=== PATIENT | female | born 1955 | race Caucasian/White ===

== ENCOUNTER 2018-05-13 17:37 | Observation (INO) | payer BC ==
[2018-05-13] MEDS ORDERED: SODIUM CHLORIDE 0.9% 1,000 ML IV STA (18:29)
--- NOTE | 2018-05-13 18:32 | ED ---
General Adult HPI - General Chief complaint: Arrhythmia/Palpitations Stated complaint: Palpitations Time Seen by Provider: 05/13/18 18:10 Source: patient, RN notes reviewed Mode of arrival: wheelchair Limitations: no limitations - History of Present Illness Initial comments: patient is a pleasant 63-year-old female presenting to the emergency Department with complaints of palpitations. Onset of symptoms was yesterday, worse today. Patient feels her heart racing. Patient has noticed on her fitbit that heart rate has been between 110 and 1:30.normally she believes her heart rate is in the 70s. No history of similar symptoms previously. Patient does have some associated dyspnea and fatigue, especially with exertion. Patient has minimal cough, nonproductive. No chest pain. No leg pain or leg swelling. - Related Data Home Medications Medication Instructions Recorded Confirmed Acetaminophen Tab [Tylenol Tab] 650 mg PO Q4H PRN 05/13/18 05/13/18 Nitrofurantoin Monohyd/M-Cryst 100 mg PO Q12HR 05/13/18 05/13/18 [Macrobid] Allergies Allergy/AdvReac Type Severity Reaction Status Date / Time No Known Allergies Allergy Verified 05/13/18 18:29 Review of Systems ROS Statement: Those systems with pertinent positive or pertinent negative responses have been documented in the HPI. ROS Other: All systems not noted in ROS Statement are negative. Constitutional: Denies: fever Eyes: Denies: eye pain ENT: Denies: ear pain Respiratory: Reports: cough, dyspnea Cardiovascular: Reports: palpitations. Denies: chest pain Endocrine: Reports: fatigue Gastrointestinal: Denies: abdominal pain Genitourinary: Denies: dysuria Musculoskeletal: Denies: back pain Skin: Denies: rash Neurological: Denies: weakness Past Medical History Past Medical History: Cancer Additional Past Medical History / Comment(s): double mastectomy History of Any Multi-Drug Resistant Organisms: None Reported Past Surgical History: Bariatric Surgery, Breast Surgery Additional Past Surgical History / Comment(s): lap band 2004 double mastectomy Past Anesthesia/Blood Transfusion Reactions: No Reported Reaction Past Psychological History: No Psychological Hx Reported Smoking Status: Former smoker Past Alcohol Use History: None Reported Past Drug Use History: None Reported General Exam Limitations: no limitations General appearance: alert, in no apparent distress Head exam: Present: atraumatic Eye exam: Present: normal appearance, PERRL ENT exam: Present: normal oropharynx Neck exam: Present: normal inspection Respiratory exam: Present: normal lung sounds bilaterally. Absent: chest wall tenderness Cardiovascular Exam: Present: tachycardia Expanded Peripheral pulses: 2+: Radial (R), Radial (L), Dorsalis Pedis (R), Dorsalis Pedis (L) GI/Abdominal exam: Present: soft. Absent: tenderness Extremities exam: Present: normal inspection. Absent: pedal edema, calf tenderness Neurological exam: Present: alert Psychiatric exam: Present: normal affect, normal mood Skin exam: Present: normal color Course Vital Signs 05/13/18 05/13/18 17:59 20:23 Temperature 98.9 F Pulse Rate 135 H 123 H Respiratory 20 18 Rate Blood Pressure 106/63 143/81 O2 Sat by Pulse 92 L 93 L Oximetry EKG Findings - EKG Comments: EKG Findings:: Sinus tachycardia 128. CT 138. QRS 74. QT 306. QTc 446. Normal axis. Normal QRS. nonspecific ST-T. Medical Decision Making - Medical Decision Making Patient reevaluated and resting comfortably in bed. Heart rate remains 120. Etiology of tachycardia is unclear at this point. Case was discussed in detail with Dr. Coffey, who will admit covering for [facility]. He does agree with consults with cardiology and pulmonary. He does request Dr. Bermudez for pulmonary. He also requests urinalysis. - Lab Data Result diagrams: 05/13/18 18:23 05/13/18 18:23 Lab Results 05/13/18 05/13/18 05/13/18 Range/Units 18:23 18:23 18:23 WBC 16.7 H (3.8-10.6) k/uL RBC 4.75 (3.80-5.40) m/uL Hgb 14.3 (11.4-16.0) gm/dL Hct 41.9 (34.0-46.0) % MCV 88.3 (80.0-100.0) fL MCH 30.2 (25.0-35.0) pg MCHC 34.2 (31.0-37.0) g/dL RDW 12.5 (11.5-15.5) % Plt Count 338 (150-450) k/uL Neutrophils % 88 % Lymphocytes % 4 % Monocytes % 4 % Eosinophils % 3 % Basophils % 0 % Neutrophils # 14.7 H (1.3-7.7) k/uL Lymphocytes # 0.7 L (1.0-4.8) k/uL Monocytes # 0.6 (0-1.0) k/uL Eosinophils # 0.5 (0-0.7) k/uL Basophils # 0.0 (0-0.2) k/uL PT (9.0-12.0) sec INR (<1.2) APTT (22.0-30.0) sec D-Dimer (<0.60) mg/L FEU Sodium 138 (137-145) mmol/L Potassium 4.1 (3.5-5.1) mmol/L Chloride 104 (98-107) mmol/L Carbon Dioxide 22 (22-30) mmol/L Anion Gap 12 mmol/L BUN 16 (7-17) mg/dL Creatinine 0.83 (0.52-1.04) mg/dL Est GFR (CKD-EPI)AfAm 89 (>60 ml/min/1.73 sqM) Est GFR (CKD-EPI)NonAf 77 (>60 ml/min/1.73 sqM) Glucose 112 H (74-99) mg/dL Calcium 10.0 (8.4-10.2) mg/dL Magnesium 1.8 (1.6-2.3) mg/dL Total Bilirubin 1.1 (0.2-1.3) mg/dL AST 18 (14-36) U/L ALT 23 (9-52) U/L Alkaline Phosphatase 142 H (38-126) U/L Creatine Kinase 26 L (30-135) U/L CK-MB (CK-2) 0.3 (0.0-2.4) ng/mL Troponin I <0.012 (0.000-0.034) ng/mL Total Protein 7.5 (6.3-8.2) g/dL Albumin 4.3 (3.5-5.0) g/dL TSH 2.250 (0.465-4.680) mIU/L Free T4 1.46 (0.78-2.19) ng/dL Free T3 pg/mL 2.4 L (2.8-5.3) pg/ml 05/13/18 Range/Units 18:23 WBC (3.8-10.6) k/uL RBC (3.80-5.40) m/uL Hgb (11.4-16.0) gm/dL Hct (34.0-46.0) % MCV (80.0-100.0) fL MCH (25.0-35.0) pg MCHC (31.0-37.0) g/dL RDW (11.5-15.5) % Plt Count (150-450) k/uL Neutrophils % % Lymphocytes % % Monocytes % % Eosinophils % % Basophils % % Neutrophils # (1.3-7.7) k/uL Lymphocytes # (1.0-4.8) k/uL Monocytes # (0-1.0) k/uL Eosinophils # (0-0.7) k/uL Basophils # (0-0.2) k/uL PT 10.9 (9.0-12.0) sec INR 1.0 (<1.2) APTT 25.0 (22.0-30.0) sec D-Dimer 0.92 H (<0.60) mg/L FEU Sodium (137-145) mmol/L Potassium (3.5-5.1) mmol/L Chloride (98-107) mmol/L Carbon Dioxide (22-30) mmol/L Anion Gap mmol/L BUN (7-17) mg/dL Creatinine (0.52-1.04) mg/dL Est GFR (CKD-EPI)AfAm (>60 ml/min/1.73 sqM) Est GFR (CKD-EPI)NonAf (>60 ml/min/1.73 sqM) Glucose (74-99) mg/dL Calcium (8.4-10.2) mg/dL Magnesium (1.6-2.3) mg/dL Total Bilirubin (0.2-1.3) mg/dL AST (14-36) U/L ALT (9-52) U/L Alkaline Phosphatase (38-126) U/L Creatine Kinase (30-135) U/L CK-MB (CK-2) (0.0-2.4) ng/mL Troponin I (0.000-0.034) ng/mL Total Protein (6.3-8.2) g/dL Albumin (3.5-5.0) g/dL TSH (0.465-4.680) mIU/L Free T4 (0.78-2.19) ng/dL Free T3 pg/mL (2.8-5.3) pg/ml - Radiology Data Radiology results: report reviewed (Computed tomography scan of the chest negative for pulmonary embolism. There is small pericardial effusion. Minimal pulmonary scarring), image reviewed (Chest x-ray shows no acute disease.) Disposition Clinical Impression: Tachycardia, Dyspnea Disposition: ADMITTED IP TO THIS HOSP Is patient prescribed a controlled substance at d/c from ED?: No Referrals: Sushma Moses DO [Primary Care Provider] - 1-2 days Decision Time: 20:41
[2018-05-13 18:41] LABS: Basophils % (A) 0 %; Eosinophils # (A) 0.5 k/uL (0-0.7); Eosinophils % (A) 3 %; HCT 41.9 % (34.0-46.0); HGB 14.3 gm/dL (11.4-16.0); Lymphocytes # (A) 0.7 k/uL (1.0-4.8); Lymphocytes % (A) 4 %; MCH 30.2 pg (25.0-35.0); MCHC 34.2 g/dL (31.0-37.0); MCV 88.3 fL (80.0-100.0); Mean Platelet Volume 6.5; Monocytes # (A) 0.6 k/uL (0-1.0); Monocytes % (A) 4 %; Neutrophils # (A) 14.7 k/uL (1.3-7.7); Neutrophils % (A) 88 %; Platelet Count 338 k/uL (150-450); RBC 4.75 m/uL (3.80-5.40); RDW 12.5 % (11.5-15.5); WBC 16.7 k/uL (3.8-10.6)
[2018-05-13 18:59] LABS: Prothrombin Time 10.9 sec (9.0-12.0)
[2018-05-13 19:10] LABS: Albumin 4.3 g/dL (3.5-5.0); Magnesium 1.8 mg/dL (1.6-2.3); Potassium 4.1 mmol/L (3.5-5.1); Total Bilirubin 1.1 mg/dL (0.2-1.3); Total Protein 7.5 g/dL (6.3-8.2)
--- NOTE | 2018-05-13 19:11 | XR ---
EXAMINATION TYPE: XR chest 2V DATE OF EXAM: 05/13/2018 COMPARISON: NONE HISTORY: Short of breath TECHNIQUE: Frontal and lateral views of the chest are obtained. FINDINGS: Heart and mediastinum are within normal limits. Costophrenic angles are clear. Lungs are c lear of infiltrate. There are surgical clips at the right axilla. Bony thorax is intact. IMPRESSION: No active cardiopulmonary disease. Normal heart.
[2018-05-13 19:12] LABS: Creatine Kinase MB 0.3 ng/mL (0.0-2.4); D-Dimer 0.92 mg/L FEU (<0.60); Troponin I <0.012 ng/mL (0.000-0.034)
[2018-05-13 19:17] LABS: T4, Free (Free Thyroxine) 1.46 ng/dL (0.78-2.19)
--- NOTE | 2018-05-13 20:25 | CT ---
EXAMINATION TYPE: CT angio chest DATE OF EXAM: 05/13/2018 8:10 PM COMPARISON: None HISTORY: ASTRID CT DLP: 274.4 mGycm Automated exposure control for dose reduction was used. CONTRAST: CTA scan of the thorax is performed with IV Contrast, patient injected with 100 mL of Isovue 370, pul monary embolism protocol. There are 3-D post processed images.. FINDINGS: There are a few less than 5 mm subpleural nodular densities in the lower lobes. There is no evidence of a pulmonary mass. There is no pleural effusion. There is subsegmental atelectasis and scarring at the posterior lung bases. Heart size is normal. There is a very small pericardial effusion. There is normal contrast opacification of the pulmonary arteries. There are few bilateral bronchial l ymph nodes that measure up to 1 cm. There are mediastinal lymph nodes that measure up to 1 cm. Thorac ic aorta shows no aneurysm or dissection. Ascending aorta measures 3.2 cm. There is mild spondylotic changes in the thoracic spine. I see no bony destructive process. Thoracic spine is intact. IMPRESSION: NO EVIDENCE OF PULMONARY EMBOLISM. SMALL PERICARDIAL EFFUSION. MINIMAL PULMONARY SCARRING.
[2018-05-13 20:48] LABS: Appearance,Urine Clear (Clear); Bilirubin,Urine Negative (Negative); Blood,Urine Negative (Negative); Color,Urine Light Red; Glucose,Urine (UA) Negative (Negative); Ketones,Urine 3+ (Negative); Leukocyte Esterase,Urine Negative (Negative); Mucus,Urine Few /hpf; Nitrite,Urine Negative (Negative); Protein,Urine 1+ (Negative); RBC,Urine 6 /hpf (0-5); Squamous Epithelial Cell,Urine <1 /hpf (0-4); Urobilinogen,Urine <2.0 mg/dL (<2.0); WBC,Urine 1 /hpf (0-5)
[2018-05-13 20:55] LABS: Cocaine Screen,Urine Not Detected (NotDetected); Phencyclidine Screen,Urine Not Detected (NotDetected); Urn Cannabinoid Scrn Not Detected (NotDetected)
[2018-05-13 20:56] LABS: Amphetamine Screen,Urine Not Detected (NotDetected); Barbiturate Screen,Urine Not Detected (NotDetected); Benzodiazepines Screen,Urine Not Detected (NotDetected); Methadone Screen, Urine Not Detected (NotDetected); Opiate Screen,Urine Not Detected (NotDetected); Oxycodone Screen, Urine Not Detected (NotDetected); Tricyclic Antidepressant,Urine Not Detected (NotDetected)
[2018-05-13 21:17] LABS: Specific Gravity,Urine >1.050 (1.001-1.035)
[2018-05-13] MEDS ORDERED: ACETAMINOPHEN TAB 325 MG TAB PO STA (22:49)
[2018-05-13 23:03] LABS: Creatine Kinase MB 0.4 ng/mL (0.0-2.4); Troponin I <0.012 ng/mL (0.000-0.034)
[2018-05-13 23:05] LABS: Cholesterol 204 mg/dL (<200); HDL Cholesterol 47 mg/dL (40-60); LDL Cholesterol,Calculated 134 mg/dL (0-99); Triglycerides 116 mg/dL (<150)
[2018-05-14 01:14] VITALS: BMI 25.6
[2018-05-14 03:13] LABS: Creatine Kinase MB 0.5 ng/mL (0.0-2.4); Troponin I <0.012 ng/mL (0.000-0.034)
[2018-05-14] MEDS ORDERED: SODIUM CHLORIDE 0.9% 500 ML 500 ML IV ONE (08:43)
[2018-05-14 09:17] LABS: Basophils % (A) 0 %; Eosinophils # (A) 0.4 k/uL (0-0.7); Eosinophils % (A) 3 %; HCT 37.1 % (34.0-46.0); HGB 12.5 gm/dL (11.4-16.0); Lymphocytes % (A) 8 %; MCH 30.1 pg (25.0-35.0); MCHC 33.8 g/dL (31.0-37.0); MCV 89.1 fL (80.0-100.0); Mean Platelet Volume 6.6; Monocytes # (A) 0.6 k/uL (0-1.0); Monocytes % (A) 5 %; Neutrophils # (A) 10.6 k/uL (1.3-7.7); Neutrophils % (A) 83 %; Platelet Count 310 k/uL (150-450); RBC 4.17 m/uL (3.80-5.40); RDW 12.6 % (11.5-15.5); WBC 12.8 k/uL (3.8-10.6)
[2018-05-14 09:36] LABS: ALT 23 U/L (9-52); AST 15 U/L (14-36); Albumin 3.2 g/dL (3.5-5.0); Alkaline Phosphatase 99 U/L (38-126); Anion Gap 7 mmol/L; Blood Urea Nitrogen 16 mg/dL (7-17); Calcium 8.8 mg/dL (8.4-10.2); Carbon Dioxide 23 mmol/L (22-30); Chloride 107 mmol/L (98-107); Glucose 106 mg/dL (74-99); Potassium 4.1 mmol/L (3.5-5.1); Sodium 137 mmol/L (137-145); Total Bilirubin 0.5 mg/dL (0.2-1.3)
[2018-05-14] MEDS ORDERED: ACETAMINOPHEN TAB 325 MG TAB PO PRN (10:19)
--- NOTE | 2018-05-14 11:37 | P.CRDCN ---
History of Present Illness Consult date: 05/14/18 Requesting physician: Javier Coffey Chief complaint: Palpitations and shortness of breath History of present illness: This is a pleasant 63-year-old female with no prior documented history of hypertension, nondiabetic, no hyperlipidemia, nonsmoker, rare EtOH, history of breast cancer for which she underwent bilateral mastectomy with chemotherapy and radiation 6 years ago, presents to the hospital with symptoms of palpitations and shortness of breath which started up on Friday. The patient does wear fit bed, she states that she noted her heart rate to be up in the 130s and she was quite short of breath, had some mild dizziness and lightheadedness. On arrival to the emergency room the patient states her heart rate was still up in the 1:30 range. The EKG performed on arrival here showed a sinus tachycardia with nonspecific ST-T wave changes. Chest x-ray did not reveal any active cardiopulmonary disease. TAX REPRESENTATIVE of the chest did not reveal any evidence of pulmonary embolism. Small pericardial effusion noted, normal pulmonary scarring. Blood pressure on arrival here 106/60 with a heart rate of 135, 92% on room air, temperature 98.9. Blood pressure this morning 92/60, heart rate in the 90s, 97% on 2 L of oxygen. Patient is currently in a normal sinus rhythm. White blood cell count on admission 16.7, 12.8 this morning, hemoglobin 12.5, platelet count 310. Sodium 137, potassium 4.1, BUN 16, creatinine 0.8. Troponins are negative 2. Drug screen negative, influenza A and B-. This morning patient feels well, in normal sinus rhythm with a heart rate in the 80s to 90s. Past Medical History Past Medical History: Cancer Additional Past Medical History / Comment(s): double mastectomy History of Any Multi-Drug Resistant Organisms: None Reported Past Surgical History: Appendectomy, Bariatric Surgery, Breast Surgery, Cholecystectomy Additional Past Surgical History / Comment(s): lap band 2004 double mastectomy Past Anesthesia/Blood Transfusion Reactions: No Reported Reaction Past Psychological History: No Psychological Hx Reported Smoking Status: Former smoker Past Alcohol Use History: None Reported Past Drug Use History: None Reported - Past Family History Mother Family Medical History: Dementia Father Family Medical History: Coronary Artery Disease (CAD), Liver Disease Additional Family Medical History / Comment(s): LIVER DISEASE WAS AFTER HEART SURGERY Medications and Allergies Home Medications Medication Instructions Recorded Confirmed Type Acetaminophen Tab [Tylenol Tab] 650 mg PO Q4H PRN 05/13/18 05/13/18 History Nitrofurantoin Monohyd/M-Cryst 100 mg PO Q12HR 05/13/18 05/13/18 History [Macrobid] Allergies Allergy/AdvReac Type Severity Reaction Status Date / Time No Known Allergies Allergy Verified 05/13/18 18:29 Physical Exam Vitals: Vital Signs Temp Pulse Pulse Resp BP BP BP 05/14/18 08:00 98.1 F 93 18 92/58 92/59 05/14/18 04:00 99.2 F 110 H 18 115/65 05/14/18 01:33 98.6 F 114 H 20 127/70 05/14/18 00:50 98.6 F 114 H 18 127/70 05/14/18 00:00 98.0 F 120 H 20 113/74 05/13/18 22:00 128 H 20 126/75 05/13/18 21:00 126 H 18 127/83 05/13/18 20:23 123 H 18 143/81 05/13/18 17:59 98.9 F 135 H 20 106/63 Pulse Ox 05/14/18 08:00 97 05/14/18 04:00 94 L 05/14/18 01:33 94 L 05/14/18 00:50 94 L 05/14/18 00:00 94 L 05/13/18 22:00 95 05/13/18 21:00 94 L 05/13/18 20:23 93 L 05/13/18 17:59 92 L Intake and Output 05/13/18 05/14/18 05/14/18 22:59 06:59 14:59 Intake Total 360 Balance 360 Intake: Oral 360 Other: Voiding Method Toilet Toilet # Voids 1 Weight 63.503 kg 63.2 kg PHYSICAL EXAMINATION: GENERAL: 63-year-old female in no acute distress at the time of my examination HEENT: Head is atraumatic, normocephalic. Pupils equal, round. Sclera anicteric. Conjunctiva are clear. Mucous membranes of the mouth are moist. Neck is supple. There is no elevated jugular venous pressure. No carotid bruit is heard. HEART EXAMINATION: Heart S1, S2 normal. No murmur or gallop heard. CHEST EXAMINATION: Lungs are clear to auscultation and precussion. No chest wall tenderness is noted on palpation or with deep breathing. ABDOMEN: Soft, nontender. Bowel sounds are heard. No organomegaly noted. EXTREMITIES: 2+ peripheral pulses with no evidence of peripheral edema and no calf tenderness noted. NEUROLOGIC patient is awake, alert and oriented X3. . Results 05/14/18 08:54 05/14/18 08:54 Cardiac Enzymes 05/13/18 05/13/18 05/13/18 Range/Units 18:23 18:23 22:00 AST 18 (14-36) U/L CK-MB (CK-2) 0.3 0.4 (0.0-2.4) ng/mL Troponin I <0.012 <0.012 (0.000-0.034) ng/mL 05/14/18 05/14/18 Range/Units 02:03 08:54 AST 15 (14-36) U/L CK-MB (CK-2) 0.5 (0.0-2.4) ng/mL Troponin I <0.012 (0.000-0.034) ng/mL Coagulation 05/13/18 Range/Units 18:23 PT 10.9 (9.0-12.0) sec APTT 25.0 (22.0-30.0) sec Lipids 05/13/18 Range/Units 18:23 Triglycerides 116 (<150) mg/dL Cholesterol 204 H (<200) mg/dL HDL Cholesterol 47 (40-60) mg/dL CBC 05/13/18 05/14/18 Range/Units 18:23 08:54 WBC 16.7 H 12.8 H (3.8-10.6) k/uL RBC 4.75 4.17 (3.80-5.40) m/uL Hgb 14.3 12.5 (11.4-16.0) gm/dL Hct 41.9 37.1 (34.0-46.0) % Plt Count 338 310 (150-450) k/uL Comprehensive Metabolic Panel 05/13/18 05/14/18 Range/Units 18:23 08:54 Sodium 138 137 (137-145) mmol/L Potassium 4.1 4.1 (3.5-5.1) mmol/L Chloride 104 107 (98-107) mmol/L Carbon Dioxide 22 23 (22-30) mmol/L BUN 16 16 (7-17) mg/dL Creatinine 0.83 0.80 (0.52-1.04) mg/dL Glucose 112 H 106 H (74-99) mg/dL Calcium 10.0 8.8 (8.4-10.2) mg/dL AST 18 15 (14-36) U/L ALT 23 23 (9-52) U/L Alkaline Phosphatase 142 H 99 (38-126) U/L Total Protein 7.5 6.0 L (6.3-8.2) g/dL Albumin 4.3 3.2 L (3.5-5.0) g/dL Current Medications Generic Name Dose Route Start Last Admin Trade Name Freq PRN Reason Stop Dose Admin Acetaminophen 650 mg 05/14/18 10:19 Tylenol Tab PO Q6HR PRN Fever and/ or Pain Ceftriaxone Sodium 1 gm/ 50 mls @ 100 mls/hr 05/14/18 11:00 Sodium Chloride IVPB Q24HR ORALIA Sodium Chloride 10 ml 05/13/18 21:00 Saline Flush IV BID ORALIA Intake and Output 05/13/18 05/14/18 05/14/18 22:59 06:59 14:59 Intake Total 360 Balance 360 Intake: Oral 360 Other: Voiding Method Toilet Toilet # Voids 1 Weight 63.503 kg 63.2 kg 05/14/18 08:54 05/14/18 08:54 EKG Interpretations (text) EKG showed a sinus tachycardia with heart rate in the 130s Assessment and Plan Plan: Assessment and plan #1 symptoms of shortness of breath with associated palpitations and heart racing , EKG on admission showed sinus tachycardia, CTA of the chest negative for pulmonary embolism #2 urinary tract infection, on Macrobid since Friday of last week #3 history of breast cancer treated with chemo and radiation as well as bilateral mastectomy 6 years ago Plan We will review the patient's echocardiogram with Doppler study. Tsh level normal. Further recommendations to follow. DNP note has been reviewed, I agree with a documented findings and plan of care. Patient was seen and examined.
--- NOTE | 2018-05-14 15:10 | P.HPIM ---
History of Present Illness H&P Date: 05/14/18 This is a 63-year-old female patient of Dr. Shin. Patient presented to the hospital with complaints of heart palpitations and shortness breath she reports that symptoms started 2 days ago but progressively increased. patient has a known past medical history of breast cancer with double mastectomy, LAP-BAND surgery in 2003, cholecystectomy and appendectomy. Chest x-ray completed in ER showing no active cardiopulmonary disease normal heart. Chest CTA was completed showing no evidence for pulmonary and was in. Small pericardial effusion minimal pulmonary scarring. Admission patient's white blood cell elevated at 16.7. Patient was tested for flu influenza negative. UA negative. Drug screen negative. Lactic acid completed 0.9. EKG completed showing sinus tachycardia and nonspecific ST abnormality. Blood and urine cultures have been ordered. Cardiology, pulmonary and infectious disease consult placed. Patient reports that she was started on Macrobid outpatient by her PCP due to positive urine culture. Patient also states symptoms started around the time that she started Macrobid. At this time Macrobid will be discontinued and patient will be started on Rocephin. Infectious disease will be consulted. At this time patient remains elevated at 110. At this time patient denies chest pain or shortness of breath. Patient denies nausea vomiting or diarrhea. Patient denies any urinary burning Review of Systems please refer to HPI otherwise unremarkable Past Medical History Past Medical History: Cancer Additional Past Medical History / Comment(s): double mastectomy History of Any Multi-Drug Resistant Organisms: None Reported Past Surgical History: Appendectomy, Bariatric Surgery, Breast Surgery, Cholecystectomy Additional Past Surgical History / Comment(s): lap band 2003 double mastectomy Past Anesthesia/Blood Transfusion Reactions: No Reported Reaction Past Psychological History: No Psychological Hx Reported Smoking Status: Former smoker Past Alcohol Use History: None Reported Past Drug Use History: None Reported - Past Family History Mother Family Medical History: Dementia Father Family Medical History: Coronary Artery Disease (CAD), Liver Disease Additional Family Medical History / Comment(s): LIVER DISEASE WAS AFTER HEART SURGERY Medications and Allergies Home Medications Medication Instructions Recorded Confirmed Type Acetaminophen Tab [Tylenol Tab] 650 mg PO Q4H PRN 05/13/18 05/13/18 History Nitrofurantoin Monohyd/M-Cryst 100 mg PO Q12HR 05/13/18 05/13/18 History [Macrobid] Allergies Allergy/AdvReac Type Severity Reaction Status Date / Time No Known Allergies Allergy Verified 05/13/18 18:29 Physical Exam Vitals: Vital Signs Temp Pulse Pulse Resp BP BP BP 05/14/18 12:00 97.9 F 81 16 109/60 05/14/18 08:00 98.1 F 93 18 92/58 92/59 05/14/18 04:00 99.2 F 110 H 18 115/65 05/14/18 01:33 98.6 F 114 H 20 127/70 05/14/18 00:50 98.6 F 114 H 18 127/70 05/14/18 00:00 98.0 F 120 H 20 113/74 05/13/18 22:00 128 H 20 126/75 05/13/18 21:00 126 H 18 127/83 05/13/18 20:23 123 H 18 143/81 05/13/18 17:59 98.9 F 135 H 20 106/63 Pulse Ox 05/14/18 12:00 97 05/14/18 08:00 97 05/14/18 04:00 94 L 05/14/18 01:33 94 L 05/14/18 00:50 94 L 05/14/18 00:00 94 L 05/13/18 22:00 95 05/13/18 21:00 94 L 05/13/18 20:23 93 L 05/13/18 17:59 92 L Intake and Output 05/14/18 05/14/18 05/14/18 06:59 14:59 22:59 Intake Total 600 Output Total 600 Balance 0 Intake: Oral 600 Output: Urine 600 Other: Voiding Method Toilet Toilet # Voids 1 Weight 63.2 kg Head normocephalic Neck supple Lungs clear to auscultation bilaterally no wheezing or crackles Heart regular rate and rhythm S1-S2, no rub or gallop Abdomen is soft nontender nondistended positive bowel sounds no hepatosplenomegaly Extremities no edema Neuro alert and orientated to 3 Results CBC & Chem 7: 05/14/18 08:54 05/14/18 08:54 Labs: Abnormal Lab Results - Last 24 Hours (Table) 05/13/18 05/13/18 05/13/18 Range/Units 18:23 18:23 18:23 WBC 16.7 H (3.8-10.6) k/uL Neutrophils # 14.7 H (1.3-7.7) k/uL Lymphocytes # 0.7 L (1.0-4.8) k/uL D-Dimer 0.92 H (<0.60) mg/L FEU Glucose 112 H (74-99) mg/dL Alkaline Phosphatase 142 H (38-126) U/L Creatine Kinase 26 L (30-135) U/L Total Protein (6.3-8.2) g/dL Albumin (3.5-5.0) g/dL Cholesterol (<200) mg/dL LDL Cholesterol, Calc (0-99) mg/dL Free T3 pg/mL 2.4 L (2.8-5.3) pg/ml Ur Specific [place] (1.001-1.035) Urine Protein (Negative) Urine Ketones (Negative) Urine RBC (0-5) /hpf Urine Mucus (None) /hpf 05/13/18 05/13/18 05/13/18 Range/Units 18:23 20:01 22:00 WBC (3.8-10.6) k/uL Neutrophils # (1.3-7.7) k/uL Lymphocytes # (1.0-4.8) k/uL D-Dimer (<0.60) mg/L FEU Glucose (74-99) mg/dL Alkaline Phosphatase (38-126) U/L Creatine Kinase 24 L (30-135) U/L Total Protein (6.3-8.2) g/dL Albumin (3.5-5.0) g/dL Cholesterol 204 H (<200) mg/dL LDL Cholesterol, Calc 134 H (0-99) mg/dL Free T3 pg/mL (2.8-5.3) pg/ml Ur Specific [place] >1.050 H (1.001-1.035) Urine Protein 1+ H (Negative) Urine Ketones 3+ H (Negative) Urine RBC 6 H (0-5) /hpf Urine Mucus Few H (None) /hpf 05/14/18 05/14/18 05/14/18 Range/Units 02:03 08:54 08:54 WBC 12.8 H (3.8-10.6) k/uL Neutrophils # 10.6 H (1.3-7.7) k/uL Lymphocytes # (1.0-4.8) k/uL D-Dimer (<0.60) mg/L FEU Glucose 106 H (74-99) mg/dL Alkaline Phosphatase (38-126) U/L Creatine Kinase 27 L (30-135) U/L Total Protein 6.0 L (6.3-8.2) g/dL Albumin 3.2 L (3.5-5.0) g/dL Cholesterol (<200) mg/dL LDL Cholesterol, Calc (0-99) mg/dL Free T3 pg/mL (2.8-5.3) pg/ml Ur Specific [place] (1.001-1.035) Urine Protein (Negative) Urine Ketones (Negative) Urine RBC (0-5) /hpf Urine Mucus (None) /hpf Thrombosis Risk Factor Assmnt - Choose All That Apply Any of the Below Risk Factors Present?: No Each Risk Factor Represents 2 Points: Age 61-74 years Thrombosis Risk Factor Assessment Total Risk Factor Score: 2 Thrombosis Risk Factor Assessment Level: Low Risk Assessment and Plan Assessment: 1. Shortness of breath dictation. EKG on admission showing sinus tachycardia. CT of chest negative for pulmonary embolism. Cardiology and pulmonary services have been consulted. 2. Leukocytosis. Initial white blood cell 18.6. Influenza negative. UA negative. Urine and blood cultures ordered. Lactic acid 0.9. Infectious disease consulted. Patient reports that she recently was started on Macrobid for urinary tract infection. We'll start patient on Rocephin at this time 3. History of breast cancer treated with chemo and radiation with bilateral vasectomy 6 years prior 4. Recent UTI. Patient states she was started on Macrobid. Patient also reports symptoms started shortly after Macrobid was started. Patient told to DC Macrobid at this time 5. History of cholecystectomy 8. History of appendectomy DVT prophylaxis Lovenox. GI prophylaxis TSH and magnesium level will be ordered. Cardiology, pulmonary and infectious disease consulted. Time with Patient: Greater than 30 (Greater than 60% of the total time spent in counseling and coordination of care. I performed an examination of the patient and discussed their management with the Nurse Practitioner. I have reviewed the Nurse Practitioner's notes and agree with the documented findings and plan of care)
--- NOTE | 2018-05-14 17:07 | ECHOF ---
Referral Reason:Tachycardia, dyspnea, pericardial effusion MEASUREMENTS -------- HEIGHT: 157.5 cm WEIGHT: 63.0 kg BP: IVSd: 0.8 cm (0.6 - 1.1) LVIDd: 3.8 cm (3.9 - 5.3) LVPWd: 1.1 cm (0.6 - 1.1) IVSs: 1.4 cm LVIDs: 2.1 cm LVPWs: 1.1 cm Ao Diam: 2.9 cm (2.0 - 3.7) AV Cusp: 1.7 cm (1.5 - 2.6) LA Diam: 3.6 cm (2.7 - 3.8) MV EXCURSION: 14.273 mm (> 18.000) MV EF SLOPE: 86 mm/s (70 - 150) EPSS: 0.4 cm MV E Bertin: 0.60 m/s MV DecT: 297 ms MV A Bertin: 0.83 m/s MV E/A Ratio: 0.73 RAP: 5.00 mmHg RVSP: 27.81 mmHg FINDINGS -------- Sinus rhythm. This was a technically good study. LV size, wall thickness and systolic function are normal, with an EF greater than 55%. The left jorge l tricular size is normal. The right ventricle is normal in size. The left atrial size is normal. The right atrial size is normal. The aortic valve is trileaflet, and appears structurally normal. No aortic stenosis or regurgitation. Mild mitral regurgitation is present. Mild tricuspid regurgitation present. There is no evidence of pulmonary hypertension. The right v entricular systolic pressure, as measured by Doppler, is 27.81mmHg. There is no pulmonic regurgitation present. The aortic root size is normal. There is no pericardial effusion. CONCLUSIONS -------- 1. LV size, wall thickness and systolic function are normal, with an EF greater than 55%. 2. The left ventricular size is normal. 3. The right ventricle is normal in size. 4. The left atrial size is normal. 5. The right atrial size is normal. 6. The aortic valve is trileaflet, and appears structurally normal. No aortic stenosis or regurgitati on. 7. Mild mitral regurgitation is present. 8. Mild tricuspid regurgitation present. 9. There is no evidence of pulmonary hypertension. 10. The right ventricular systolic pressure, as measured by Doppler, is 27.81mmHg. 11. There is no pulmonic regurgitation present. 12. The aortic root size is normal. 13. There is no pericardial effusion. HEMSTITCHER: Adelaida Frias RDCS
--- NOTE | 2018-05-14 17:46 | P.CNPUL ---
History of Present Illness Consult date: 05/14/18 Reason for consult: dyspnea History of present illness: 63-year-old female patient who came into the emergency department complaining of some shortness of breath and tachycardia. The patient was recently diagnosed having a urine checked infection and the patient was given nitrofurantoin on outpatient basis. No skin rashes. No swelling in her tongue gallbladder Lipitor the neck area. She noted that her heart was going fast and she was concerned and for that reason she end up coming into the hospital. She was having urinary frequency. No dysuria. No urgency. No recurrent UTIs. Her white cell count was at 16.7. Influenza screen was negative. UA was negative. Urine drug screen was negative. Lactic acid level was at 0.9. EKG shows sinus tachycardia. Chest x-ray showed no acute abnormalities. CT angios the chest showed no acute abnormalities. The patient is improved. No shortness of breath for now. She is currently on room air. She was given IV Rocephin and nitrofurantoin was discontinued. She is an ex-smoker. No respiratory difficulties in the past. No history of any DVT or pulmonary embolism. No angina. No palpitations. No hemoptysis. No swelling in lower extremities. She is back to her baseline for now. Absolutely no other complaints for now. Review of Systems Constitutional: Denies chills, Denies fever Eyes: denies as per HPI, denies blurred vision, denies bulging eye, denies decreased vision, denies diplopia, denies discharge, denies dry eye, denies irritation, denies itching, denies pain, denies photophobia, denies loss of peripheral vision, denies loss of vision, denies tunnel vision/blind spots Ears: deny: decreased hearing, ear discharge, earache, tinnitus Ears, nose, mouth and throat: Denies headache, Denies sore throat Breasts: absent: as per HPI, change in shape, gynecomastia, masses, nipple discharge, pain, skin changes, swelling Cardiovascular: Reports rapid heart beat Respiratory: Reports dyspnea Gastrointestinal: Denies abdominal pain, Denies diarrhea, Denies nausea, Denies vomiting Genitourinary: Denies dysuria, Denies hematuria Menstruation: Reports as per HPI Musculoskeletal: Reports as per HPI Musculoskeletal: absent: ankle pain, ankle stiffness, ankle swelling, as per HPI , elbow pain, elbow stiffness, elbow swelling, foot pain, foot stiffness, foot swelling, hand pain, hand stiffness, hand swelling, hip pain, hip stiffness, hip swelling, knee pain, knee stiffness, knee swelling, shoulder pain, shoulder stiffness, shoulder swelling, wrist pain, wrist stiffness, wrist swelling Integumentary: Reports as per HPI Neurological: Reports as per HPI Psychiatric: Reports as per HPI Endocrine: Reports as per HPI Hematologic/Lymphatic: Reports as per HPI Allergic/Immunologic: Reports as per HPI Past Medical History Past Medical History: Cancer (History of breast cancer post-double mastectomy) Additional Past Medical History / Comment(s): double mastectomy History of Any Multi-Drug Resistant Organisms: None Reported Past Surgical History: Appendectomy, Bariatric Surgery, Breast Surgery, Cholecystectomy Additional Past Surgical History / Comment(s): lap band 2004 double mastectomy Past Anesthesia/Blood Transfusion Reactions: No Reported Reaction Past Psychological History: No Psychological Hx Reported Smoking Status: Former smoker Past Alcohol Use History: None Reported Past Drug Use History: None Reported - Past Family History Mother Family Medical History: Dementia Father Family Medical History: Coronary Artery Disease (CAD), Liver Disease Additional Family Medical History / Comment(s): LIVER DISEASE WAS AFTER HEART SURGERY Medications and Allergies Home Medications Medication Instructions Recorded Confirmed Type Acetaminophen Tab [Tylenol Tab] 650 mg PO Q4H PRN 05/13/18 05/13/18 History Nitrofurantoin Monohyd/M-Cryst 100 mg PO Q12HR 05/13/18 05/13/18 History [Macrobid] Allergies Allergy/AdvReac Type Severity Reaction Status Date / Time No Known Allergies Allergy Verified 05/13/18 18:29 Physical Exam Vitals: Vital Signs Temp Pulse Pulse Resp BP BP BP 05/14/18 12:00 97.9 F 81 16 109/60 05/14/18 08:00 98.1 F 93 18 92/58 92/59 05/14/18 04:00 99.2 F 110 H 18 115/65 05/14/18 01:33 98.6 F 114 H 20 127/70 05/14/18 00:50 98.6 F 114 H 18 127/70 05/14/18 00:00 98.0 F 120 H 20 113/74 05/13/18 22:00 128 H 20 126/75 05/13/18 21:00 126 H 18 127/83 05/13/18 20:23 123 H 18 143/81 05/13/18 17:59 98.9 F 135 H 20 106/63 Pulse Ox 05/14/18 12:00 97 05/14/18 08:00 97 05/14/18 04:00 94 L 05/14/18 01:33 94 L 05/14/18 00:50 94 L 05/14/18 00:00 94 L 05/13/18 22:00 95 05/13/18 21:00 94 L 05/13/18 20:23 93 L 05/13/18 17:59 92 L Intake and Output 05/14/18 05/14/18 05/14/18 06:59 14:59 22:59 Intake Total 600 Output Total 600 Balance 0 Intake: Oral 600 Output: Urine 600 Other: Voiding Method Toilet Toilet # Voids 1 Weight 63.2 kg The patient appeared well nourished and normally developed. Vital signs as documented. Head exam is unremarkable. No scleral icterus or corneal arcus noted. Neck is without jugular venous distension, thyromegaly, or carotid bruits. Carotid upstrokes are brisk bilaterally. Lungs are clear to auscultation and percussion. Cardiac exam reveals the PMI to be normally sized and situated. Rhythm is regular. First and second heart sounds normal. No murmurs, rubs or gallops. Abdominal exam reveals normal bowel sounds, no masses , no organomegaly and no aortic enlargement. Extremities are nonedematous and both femoral and pedal pulses are normal. Results - Laboratory Findings CBC and BMP: 05/14/18 08:54 05/14/18 08:54 PT/INR, D-dimer PT 10.9 sec (9.0-12.0) 05/13/18 18:23 INR 1.0 (<1.2) 05/13/18 18:23 D-Dimer 0.92 mg/L FEU (<0.60) H 05/13/18 18:23 Abnormal lab findings: Abnormal Labs 05/13/18 05/13/18 05/13/18 18:23 18:23 18:23 WBC 16.7 H Neutrophils # 14.7 H Lymphocytes # 0.7 L D-Dimer 0.92 H Glucose 112 H Alkaline Phosphatase 142 H Creatine Kinase 26 L Total Protein Albumin Cholesterol LDL Cholesterol, Calc Free T3 pg/mL 2.4 L Ur Specific [place] Urine Protein Urine Ketones Urine RBC Urine Mucus 05/13/18 05/13/18 05/13/18 18:23 20:01 22:00 WBC Neutrophils # Lymphocytes # D-Dimer Glucose Alkaline Phosphatase Creatine Kinase 24 L Total Protein Albumin Cholesterol 204 H LDL Cholesterol, Calc 134 H Free T3 pg/mL Ur Specific [place] >1.050 H Urine Protein 1+ H Urine Ketones 3+ H Urine RBC 6 H Urine Mucus Few H 05/14/18 05/14/18 05/14/18 02:03 08:54 08:54 WBC 12.8 H Neutrophils # 10.6 H Lymphocytes # D-Dimer Glucose 106 H Alkaline Phosphatase Creatine Kinase 27 L Total Protein 6.0 L Albumin 3.2 L Cholesterol LDL Cholesterol, Calc Free T3 pg/mL Ur Specific [place] Urine Protein Urine Ketones Urine RBC Urine Mucus - Diagnostic Findings Chest x-ray: image reviewed CT scan - chest: image reviewed Assessment and Plan Plan: Assessment 1 shortness of breath/tachycardia and the symptoms have completely recovered. The workup has been negative for now. Exam is within normal limits. Consider drug reaction related to Macrobid. 2 recent UTI treated with Macrobid 3 breast cancer with bilateral mastectomy followed by chemoradiation therapy 4 leukocytosis improved and her white cell count is down to 12.8. Plan Stop nitrofurantoin. Use IV Rocephin. Send cultures. Oxygenation is completely normalized. We'll discontinue the oxygen. Ambulate in the hallway. CT angios the chest is within normal. Echocardiogram is within normal. This tachycardia has recovered. We'll continue to follow as needed
[2018-05-15] MEDS ORDERED: PANTOPRAZOLE 40 MG TABLET PO SCH (07:30)
[2018-05-15 07:37] LABS: Basophils % (A) 1 %; Eosinophils # (A) 0.4 k/uL (0-0.7); Eosinophils % (A) 6 %; HGB 13.2 gm/dL (11.4-16.0); Lymphocytes # (A) 1.9 k/uL (1.0-4.8); Lymphocytes % (A) 28 %; MCH 30.5 pg (25.0-35.0); MCHC 33.7 g/dL (31.0-37.0); MCV 90.3 fL (80.0-100.0); Mean Platelet Volume 6.2; Monocytes # (A) 0.4 k/uL (0-1.0); Monocytes % (A) 6 %; Neutrophils # (A) 3.7 k/uL (1.3-7.7); Neutrophils % (A) 56 %; Platelet Count 373 k/uL (150-450); RBC 4.32 m/uL (3.80-5.40); RDW 12.6 % (11.5-15.5); WBC 6.6 k/uL (3.8-10.6)
[2018-05-15 07:45] LABS: ALT 29 U/L (9-52); AST 17 U/L (14-36); Albumin 3.4 g/dL (3.5-5.0); Alkaline Phosphatase 106 U/L (38-126); Anion Gap 8 mmol/L; Blood Urea Nitrogen 14 mg/dL (7-17); Calcium 9.4 mg/dL (8.4-10.2); Carbon Dioxide 22 mmol/L (22-30); Chloride 109 mmol/L (98-107); Glucose 87 mg/dL (74-99); Magnesium 1.9 mg/dL (1.6-2.3); Potassium 4.4 mmol/L (3.5-5.1); Sodium 139 mmol/L (137-145); Total Bilirubin 0.4 mg/dL (0.2-1.3); Total Protein 6.4 g/dL (6.3-8.2)
--- NOTE | 2018-05-15 08:11 | CONS ---
CONSULTATION DATE OF SERVICE: 05/14/2018 REASON FOR CONSULTATION: Possible sepsis. HISTORY OF PRESENT ILLNESS: The patient is a 63-year-old, female presenting to the ER at [facility] yesterday with chief complaints of palpitation. The patient's symptoms started yesterday where she noticed to have increased beating of heart. Patient who normally wears a Fitbit noticed her heart rate to be ranging between to 110 to 130 beats per minute. The patient did have associated shortness of breath with it. The patient denies significant chest pain or cough. No URI symptoms. No nausea, no vomiting. No abdominal pain and no diarrhea. She has no significant burning or frequency of urine with these symptoms. The patient was evaluated by the ER physician. On arrival to the ER, the patient was afebrile. The O2 saturation have been to 92%. The patient's heart rate was 114. The patient did have a elevated white count of 16,000. Urine drug screen was negative. UA itself was negative. Influenza serology was negative. The patient did have a CT angiogram that was negative for any acute infiltrate or PE, did show possible mild pericardial effusion. An echocardiogram was done which was normal EF and no evidence of pericardial effusion. The patient was started on Rocephin. Infectious Disease was consulted for possible sepsis. Apparently the patient recently has been treated in the outpatient setting with Macrobid for the UTI. REVIEW OF SYSTEMS: Positive points have been mentioned in HPI. Rest of systems has been negative. PAST MEDICAL HISTORY: Breast cancer. PAST SURGICAL HISTORY: Appendectomy, bariatric surgery, double mastectomy, cholecystectomy. SOCIAL HISTORY: Remote history of smoking. No drinking or drug use. FAMILY HISTORY: Mother with history of dementia. Father has heart disease and liver disease. ALLERGIES: No known drug allergies. MEDICATION: Medications include the patient is currently on Tylenol, Rocephin, Lovenox, Protonix. PHYSICAL EXAMINATION: On examination, her blood pressure is 118/64 with a pulse of 93, temperature 98.2. She is 94% on room air. General description is a middle-aged female lying in bed in no distress. No tachypnea or accessory muscle of respiration use. HEENT examination shows no pallor or scleral icterus. Oral mucous membrane is dry. No pharyngeal erythema or thrush. NECK: Trachea central. No thyromegaly. LUNGS: Unlabored breathing, clear to auscultation. No wheeze or crackle. HEART: S1, S2. Regular rate and rhythm. No added sounds. ABDOMEN: Soft, no tenderness. No guarding. No organomegaly. EXTREMITIES: No edema of the feet. SKIN EXAMINATION: No rash or mass palpable. NEUROLOGICAL: The patient is awake, alert, oriented x3. Mood and affect normal. LABS: Hemoglobin is 12.5 white count 12.8. BUN of 16, creatinine 0.80. Electrolytes have normal. Liver enzymes are normal. Urine negative. Urine drug screen was negative. Influenza serology was negative. DIAGNOSTIC IMPRESSION AND PLAN: Patient with leukocytosis in this patient who has been admitted to the hospital pre dominantly with palpitation, shortness of breath in this patient who did have extensive workup including a CT angiogram that was negative for PE. No evidence of any pericardial effusion on the echocardiogram. Apparently the patient has been treated in outpatient setting with Macrobid with question of possible acute likely etiology. The patient with no evidence of any rash and white count more likely . PLAN: 1. Rocephin 1 gram . 2. However if the blood cultures and urine cultures remain to be negative antibiotic can be safely discontinued. 3. Will monitor patient closely antibiotic therapy. Continue with supportive care. MMODL / IJN: [id number] /
[2018-05-15 08:29] VITALS: RESP 18
[2018-05-15] MEDS ORDERED: ENOXAPARIN 40 MG/0.4 ML SYRINGE SQ SCH (09:00)
[2018-05-15 10:28] LABS: T4, Free (Free Thyroxine) 1.58 ng/dL (0.78-2.19)
--- NOTE | 2018-05-15 13:59 | PN ---
PROGRESS NOTE DATE OF SERVICE: 05/15/2018 REASON FOR FOLLOWUP: Leukocytosis, possible SIRS or sepsis. INTERVAL HISTORY: The patient is currently afebrile. The patient is feeling much better. She is breathing comfortably on room air. Denies having any chest pain. No shortness of breath or cough. No abdominal pain or any diarrhea. PHYSICAL EXAMINATION: Blood pressure 115/69 with a pulse of 87, temperature 97, she is 98% on room air. General description is a middle-aged female, up in the bed in no distress. RESPIRATORY SYSTEM: Unlabored breathing, clear to auscultation anteriorly. HEART: S1, S2. Regular rate and rhythm. ABDOMEN: Soft, no tenderness. LABS: Hemoglobin is 13.1, white count of 6.6 with a BUN of 14, creatinine 0.68. DIAGNOSTIC IMPRESSION AND PLAN: Patient admitted to the hospital with difficulty breathing, tachycardia, elevated white count, meeting criteria for SIRS, questionably related to nitrofurantoin, she was taking for UTI that has been discontinued. Culture has been negative. Her white count has normalized. Antibiotic can now be discontinued on discharge with close outpatient followup. Continue supportive care. MMODL / IJN: [id number] /
--- NOTE | 2018-05-15 14:03 | P.DS ---
Providers Date of admission: 05/13/18 20:42 Expected date of discharge: 05/15/18 Attending physician: Javier Coffey Consults: 05/13/18 20:41 Consult Physician Urgent Consulting Provider: Mercy Bermudez Consult Reason/Comments: Tachycardia and dyspnea Do you want consulting provider notified?: Yes 05/13/18 20:42 Consult Physician Urgent Consulting Provider: Khanh Montilla Consult Reason/Comments: Tachycardia and dyspnea Do you want consulting provider notified?: Yes 05/14/18 08:42 Consult Physician Routine Consulting Provider: Brenda Henderson Consult Reason/Comments: possible sepsis Do you want consulting provider notified?: Yes Primary care physician: Sushma Moses Hospital Course: Discharge diagnosis 1. Shortness of breath and tachycardia. EKG on admission showing sinus tachycardia. CT of chest negative for pulmonary embolism. 2-D echo has been completed showing EF greater than 55%. Per cardiology services many on discharge patient with 15 day event monitor and follow-up in cardiology office. She has been cleared from pulmonary services 2. Leukocytosis. Initial white blood cell 18.6. Influenza negative. UA negative. Urine and blood cultures ordered. Lactic acid 0.9. Infectious disease consulted. Patient reports that she recently was started on Macrobid for urinary tract infection. We'll start patient on Rocephin at this time. White blood cell normalized to 6.6. Blood culture currently showing no growth. Patient will be DC'd on 500 for 5 more days. Symptoms likely result of reaction to Macrobid 3. History of breast cancer treated with chemo and radiation with bilateral vasectomy 6 years prior 4. Recent UTI. Patient states she was started on Macrobid. Patient also reports symptoms started shortly after Macrobid was started. Patient told to DC Macrobid at this time. Patient will be DC'd on Ceftin for 5 more days 5. History of cholecystectomy 8. History of appendectomy Hospital Course This is a 63-year-old female patient of Dr. Shin. Patient presented to the hospital with complaints of heart palpitations and shortness breath she reports that symptoms started 2 days ago but progressively increased. patient has a known past medical history of breast cancer with double mastectomy, LAP-BAND surgery in 2003, cholecystectomy and appendectomy. Chest x-ray completed in ER showing no active cardiopulmonary disease normal heart. Chest CTA was completed showing no evidence for pulmonary and was in. Small pericardial effusion minimal pulmonary scarring. Admission patient's white blood cell elevated at 16.7. Patient was tested for flu influenza negative. UA negative. Drug screen negative. Lactic acid completed 0.9. EKG completed showing sinus tachycardia and nonspecific ST abnormality. Blood and urine cultures have been ordered. Cardiology, pulmonary and infectious disease consult placed. Patient reports that she was started on Macrobid outpatient by her PCP due to positive urine culture. Patient also states symptoms started around the time that she started Macrobid. At this time Macrobid will be discontinued and patient will be started on Rocephin. Infectious disease will be consulted. At this time patient remains elevated at 110. At this time patient denies chest pain or shortness of breath. Patient denies nausea vomiting or diarrhea. Patient denies any urinary burning On 05/15/2018 patient is alert and oriented 3. Patient patient's heart rate 87 patient's blood pressure 115/69. Patient remains on on room air. Patient has been cleared for discharge from consulting providers it is believed the patient had a potential reaction to Macrobid. Patient has been up ambulating to halls without symptoms. Per cardiology patient to have 5 day event monitor upon discharge and follow up with cardiology and primary care services. This time patient denies nausea vomiting or diarrhea. Patient denies chest pain or shortness breath. Patient denies any urinary burning or frequency. I performed an examination of the patient and discussed their management with the Nurse Practitioner. I have reviewed the Nurse Practitioner's notes and agree with the documented findings and plan of care Patient Condition at Discharge: Stable Plan - Discharge Summary Discharge Rx Participant: No New Discharge Prescriptions: New Cefuroxime Axetil [Ceftin] 500 mg PO BID 5 Days #10 tab Continue Acetaminophen Tab [Tylenol] 650 mg PO Q4H PRN PRN Reason: Pain Discontinued Nitrofurantoin Monohyd/M-Cryst [Macrobid] 100 mg PO Q12HR Discharge Medication List Acetaminophen Tab [Tylenol] 650 mg PO Q4H PRN 05/13/18 [History] Cefuroxime Axetil [Ceftin] 500 mg PO BID 5 Days #10 tab 05/15/18 [Rx] Follow up Appointment(s)/Referral(s): Sushma Moses DO [Primary Care Provider] - 1-2 days Faustino Pineda MD [STAFF PHYSICIAN] - 06/12/18 2:30 pm Activity/Diet/Wound Care/Special Instructions: Activity as tolerated Diet heart healthy Discharge Disposition: HOME SELF-CARE
--- NOTE | 2018-05-15 14:11 | P.PN ---
Subjective Progress Note Date: 05/15/18 This is a pleasant 63-year-old female with no prior documented history of hypertension, nondiabetic, no hyperlipidemia, nonsmoker, rare EtOH, history of breast cancer for which she underwent bilateral mastectomy with chemotherapy and radiation 6 years ago, presents to the hospital with symptoms of palpitations and shortness of breath which started up on Friday. The patient does wear fit bed, she states that she noted her heart rate to be up in the 130s and she was quite short of breath, had some mild dizziness and lightheadedness. On arrival to the emergency room the patient states her heart rate was still up in the 1:30 range. The EKG performed on arrival here showed a sinus tachycardia with nonspecific ST-T wave changes. Chest x-ray did not reveal any active cardiopulmonary disease. MIXING ENGINEER of the chest did not reveal any evidence of pulmonary embolism. Small pericardial effusion noted, normal pulmonary scarring. Blood pressure on arrival here 106/60 with a heart rate of 135, 92% on room air, temperature 98.9. Blood pressure this morning 92/60, heart rate in the 90s, 97% on 2 L of oxygen. Patient is currently in a normal sinus rhythm. White blood cell count on admission 16.7, 12.8 this morning, hemoglobin 12.5, platelet count 310. Sodium 137, potassium 4.1, BUN 16, creatinine 0.8. Troponins are negative 2. Drug screen negative, influenza A and B-. This morning patient feels well, in normal sinus rhythm with a heart rate in the 80s to 90s. 05/15/2018 Patient seen and examined this morning, no arrhythmias have been noted on the monitor. Blood pressure 116/68 with a heart rate in the 80s, 98% on room air. White blood cell count 6.6, hemoglobin 13.2, platelet count 373. Sodium 139, potassium 4.4, BUN 14 and creatinine 0.6. Echocardiogram with Doppler study revealed a normal left ventricular systolic, no evidence of any pericardial effusion Objective - Vital Signs Vital signs: Vital Signs Temp 97 F L 05/15/18 08:00 Pulse 87 05/15/18 08:00 Resp 18 05/15/18 08:00 BP 115/69 05/15/18 08:00 Pulse Ox 97 05/15/18 08:45 Intake & Output 05/14/18 05/15/18 05/15/18 18:59 06:59 18:59 Intake Total 600 600 Output Total 600 600 Balance 0 -600 600 Weight 63.9 kg Intake: Oral 600 600 Output: Urine 600 600 Other: Voiding Method Toilet Toilet # Voids 1 1 - Exam PHYSICAL EXAMINATION: GENERAL: 63-year-old female in no acute distress at the time of my examination HEENT: Head is atraumatic, normocephalic. Pupils equal, round. Sclera anicteric. Conjunctiva are clear. Mucous membranes of the mouth are moist. Neck is supple. There is no elevated jugular venous pressure. No carotid bruit is heard. HEART EXAMINATION: Heart S1, S2 normal. No murmur or gallop heard. CHEST EXAMINATION: Lungs are clear to auscultation and precussion. No chest wall tenderness is noted on palpation or with deep breathing. ABDOMEN: Soft, nontender. Bowel sounds are heard. No organomegaly noted. EXTREMITIES: 2+ peripheral pulses with no evidence of peripheral edema and no calf tenderness noted. NEUROLOGIC patient is awake, alert and oriented X3. - Labs CBC & Chem 7: 05/15/18 07:01 05/15/18 07:01 Labs: Abnormal Lab Results - Last 24 Hours (Table) 05/15/18 Range/Units 07:01 Chloride 109 H (98-107) mmol/L Albumin 3.4 L (3.5-5.0) g/dL TSH 5.100 H (0.465-4.680) mIU/L Microbiology - Last 24 Hours (Table) 05/14/18 08:54 Blood Culture - Preliminary Blood No Growth after 24 hours Assessment and Plan Plan: Assessment and plan #1 symptoms of shortness of breath with associated palpitations and heart racing , EKG on admission showed sinus tachycardia, CTA of the chest negative for pulmonary embolism #2 urinary tract infection, on Macrobid since Friday of last week #3 history of breast cancer treated with chemo and radiation as well as bilateral mastectomy 6 years ago Plan Echo cardiac gram with Doppler study revealed a normal left ventricular systolic function with no evidence of pericardial effusion. From cardiology's perspective, patient may be able to be discharged home. We recommend that she obtain a 15 day event monitor from the office on discharge. Follow-up appointment with Dr. VC Pineda in the office. DNP note has been reviewed, I agree with a documented findings and plan of care. Patient was seen and examined.
[2018-05-15 14:57] VITALS: BP 108/65; PULSE 88; TEMP 98.1
--- NOTE | 2018-05-15 15:05 | P.PN ---
Subjective Progress Note Date: 05/15/18 Principal diagnosis: Shortness of breath/tachycardia 63-year-old female patient who came into the emergency department complaining of some shortness of breath and tachycardia. The patient was recently diagnosed having a urine checked infection and the patient was given nitrofurantoin on outpatient basis. No skin rashes. No swelling in her tongue gallbladder Lipitor the neck area. She noted that her heart was going fast and she was concerned and for that reason she end up coming into the hospital. She was having urinary frequency. No dysuria. No urgency. No recurrent UTIs. Her white cell count was at 16.7. Influenza screen was negative. UA was negative. Urine drug screen was negative. Lactic acid level was at 0.9. EKG shows sinus tachycardia. Chest x-ray showed no acute abnormalities. CT angios the chest showed no acute abnormalities. The patient is improved. No shortness of breath for now. She is currently on room air. She was given IV Rocephin and nitrofurantoin was discontinued. She is an ex-smoker. No respiratory difficulties in the past. No history of any DVT or pulmonary embolism. No angina. No palpitations. No hemoptysis. No swelling in lower extremities. She is back to her baseline for now. Absolutely no other complaints for now. On 05/15/2018 she seen in follow-up on selective care unit, she is awake and alert, in no acute distress, no shortness of breath, no chest pain, no tachycardia, vital signs are stable, tachycardia, heart rate is in the 80s to 90 BPM, Pulse ox is 96%. Labs they have been reviewed, CBC is within normal limits, no leukocytosis, white blood cell count 6.6, hemoglobin is 13.2, electrolytes and renal profile are unremarkable. SH was 5.1, free T4 was 1.58. Influenza was not detected. EKG angios chest showed no evidence of pulmonary embolism, small pericardial effusion, minimal pulmonary scarring, no other acute pulmonary process. Physical exam was unremarkable, lung sounds are clear. Blood cultures showed no growth. Objective - Vital Signs Vital signs: Vital Signs Temp 98.1 F 05/15/18 12:00 Pulse 88 05/15/18 12:00 Resp 18 05/15/18 12:00 BP 108/65 05/15/18 12:00 Pulse Ox 96 05/15/18 12:00 Intake & Output 05/14/18 05/15/18 05/15/18 18:59 06:59 18:59 Intake Total 600 600 Output Total 600 600 Balance 0 -600 600 Weight 63.9 kg Intake: Oral 600 600 Output: Urine 600 600 Other: Voiding Method Toilet Toilet # Voids 1 1 - Exam GENERAL EXAM: Alert, pleasant, 63-year-old female comfortable in no apparent distress. HEAD: Normocephalic/atraumatic. EYES: Normal reaction of pupils, equal size. Conjunctiva pink, sclera white. NOSE: Clear with pink turbinates. THROAT: No erythema or exudates. NECK: No masses, no JVD, no thyroid enlargement, no adenopathy. CHEST: No chest wall deformity. Symmetrical expansion. LUNGS: Equal air entry with clear breath sounds CVS: Regular rate and rhythm, normal S1 and S2, no gallops, no murmurs, no rubs ABDOMEN: Soft, nontender. No hepatosplenomegaly, normal bowel sounds, no guarding or rigidity. EXTREMITIES: No clubbing, no edema, no cyanosis, 2+ pulses and upper and lower extremities. MUSCULOSKELETAL: Muscle strength and tone normal. SPINE: No scoliosis or deformity SKIN: No rashes CENTRAL NERVOUS SYSTEM: Alert and oriented -3. No focal deficits, tone is normal in all 4 extremities. PSYCHIATRIC: Alert and oriented -3. Appropriate affect. Intact judgment and insight. - Labs CBC & Chem 7: 05/15/18 07:01 05/15/18 07:01 Labs: Abnormal Lab Results - Last 24 Hours (Table) 05/15/18 Range/Units 07:01 Chloride 109 H (98-107) mmol/L Albumin 3.4 L (3.5-5.0) g/dL TSH 5.100 H (0.465-4.680) mIU/L Microbiology - Last 24 Hours (Table) 05/14/18 08:54 Blood Culture - Preliminary Blood No Growth after 24 hours Assessment and Plan Plan: Assessment: 1 shortness of breath/tachycardia and the symptoms have completely recovered. The workup has been negative for now. Exam is within normal limits. Consider drug reaction related to Macrobid. 2 recent UTI treated with Macrobid 3 breast cancer with bilateral mastectomy followed by chemoradiation therapy 4 leukocytosis improved and her white cell count is down to 12.8. Plan: Patient is doing well, nitrofurantoin has been discontinued, cultures no growth , she is on room air, taking good oxygenation, no specific complaints, no complaints of shortness of breath, chest pain, tachycardia has resolved, vital signs are within normal limits, today's labs have been unremarkable. Echocardiogram was within normal limits. Patient is being discharged home today. I performed a history & physical examination of the patient and discussed their management with my nurse practitioner, Latricia Guevara. I reviewed the nurse practitioner's note and agree with the documented findings and plan of care. Lung sounds are positive for clear breath sounds. The findings and the impression was discussed with the patient. I attest to the documentation by the nurse practitioner. Time with Patient: Less than 30
== END 2018-05-15 15:35 | disposition home or self-care (01) ==
LOC: EC 17:37 → 3SCARD 20:42
PROVIDERS: ADMIT Internal Medicine; ATTEND Internal Medicine
DX: R00.0 Tachycardia, unspecified (principal); R06.02 Shortness of breath; R00.2 Palpitations; D72.829 Elevated white blood cell count, unspecified; N39.0 Urinary tract infection, site not specified; R94.31 Abnormal electrocardiogram [ECG] [EKG]; R53.83 Other fatigue; R42 Dizziness and giddiness; Z90.13 Acquired absence of bilateral breasts and nipples; Z92.21 Personal history of antineoplastic chemotherapy; Z92.3 Personal history of irradiation; Z85.3 Personal history of malignant neoplasm of breast; Z98.84 Bariatric surgery status; Z87.891 Personal history of nicotine dependence; Z90.49 Acquired absence of other specified parts of digestive tract; Z81.8 Family history of other mental and behavioral disorders; Z83.79 Family history of other diseases of the digestive system
CPT/HCPCS: 96361 ×2; 96365; 99285; 36415; 94760; 93306; 85379; 84439 ×2; 84481; 80061; 80053 ×3; 84443 ×2; 82550 ×2; 82553 ×2; 83605; 83735 ×2; 84484 ×2; 85025 ×3; 85610; 85730; 81001; 87040; 80306; 87502; 71046; 71275; G0378 ×3; J0696 ×2; Q9967

== ENCOUNTER → 2024-06-29 | Outpatient (CLI) | payer MEDICARE ==
--- NOTE | 2024-06-29 15:41 | FL ---
EXAMINATION TYPE: FL barium swallow DATE OF EXAM: 06/29/2024 LAP BANDING LIMITED ESOPHAGRAM: CLINICAL INDICATION: Female, 69 years old with history of R13.10 DYSPHAGIA, history of lap band place d years ago with recent dysphagia over last one to 2 months. Had the fill removed from lap band [facility] today TECHNIQUE: Limited esophagram is performed utilizing 20 oz of barium. One minute 8 seconds of fluor o time and 4 images obtained. COMPARISON: None. FINDINGS: Lap band appears satisfactory in position with satisfactory angle on initial images obtaine d. The patient then drank oral contrast. There is good flow of contrast along the course of the esoph bernice. There is mild delay in flow of contrast along the course of the lap band, there is no evidence of contrast extravasation to suggest leak. There is no lap band slippage appreciated. Cholecystecto my clips are incidentally noted. Overlying bra strap is noted. IMPRESSION: No evidence of lap band slippage or significant obstruction after fluid from band removed earlier today. [facility], , 06/29/2024 3:38 PM
== END | disposition home or self-care (01) ==
LOC: RADFLMAIN 14:47
PROVIDERS: ATTEND Surgery
DX: R13.10 Dysphagia, unspecified (principal)
CPT/HCPCS: 74220

== ENCOUNTER → 2024-06-29 | Outpatient (CLI) | payer MEDICARE ==
[2024-06-29 12:18] VITALS: BP 131/74; PULSE 93; TEMP 98.1; BMI 25.0
--- NOTE | 2024-06-29 12:32 | P.BASOAP ---
Subjective Progress Note Date: 06/29/24 Principal diagnosis: Dysphagia 69-year-old female here for dysphagia symptoms. Symptoms began about a month ago but much more severe in the last 2 weeks. Has been having difficulty even with water for the last 2 days. Weight today 137. Complains of nighttime reflux and cough. Has not had her band adjusted in many years. She was last here in the office in 2017. Unsure how much fluid is in the band. Band was placed in 2003. Objective - Vital Signs Vital signs: Vital Signs Temp 98.1 F 06/29/24 12:15 Pulse 93 06/29/24 12:15 Resp BP 131/74 06/29/24 12:15 Pulse Ox FiO2 Intake & Output 06/28/24 06/29/24 06/29/24 18:59 06:59 18:59 Weight 62.142 kg - Exam Abdomen: Soft, nontender, nondistended Assessment/Plan (1) Dysphagia Narrative/Plan: Will empty the patient's band at this time. Check upper GI. The patient's lap band port was palpated. The site was aseptically prepped. The Aburto needle was advanced into the port. A total of 3.3 ml of fluid was removed. Band is now empty. Pressure was held and a sterile dressing was applied. Plan: Date: 06/29/24 Initial Weight: Initial BMI: Current Weight: 62.142 kg Current BMI: 25.0 Type of Surgery: Total Volume in Band: Previous Volume: Volume Removed: Volume Added: Band Size:
== END ==
LOC: BARWHC3 11:55
PROVIDERS: ATTEND Surgery
DX: R13.10 Dysphagia, unspecified (principal); K21.9 Gastro-esophageal reflux disease without esophagitis; R05.9 Cough, unspecified; Z88.1 Allergy status to other antibiotic agents; Z87.891 Personal history of nicotine dependence
CPT/HCPCS: 99203

== ENCOUNTER → 2024-07-26 | Outpatient (CLI) | payer MEDICARE ==
[2024-07-26 08:57] VITALS: BP 148/87; PULSE 73; RESP 16; TEMP 98.2
--- NOTE | 2024-08-03 16:24 | P.HPBAR ---
Bariatric H&P - History & Physicial H&P Date: 07/26/24 History & Physicial: Visit/CC: f/u lapband Patient initial contact: Initial weight: Initial weight in pounds: Height: 5 ft 2 in Initial BMI: Last weight: Current weight: 68.039 kg Current weight in pounds: Current BMI: [place] body weight (based on NIH guidelines): Excess body weight loss: The patient is a 69 year-old F who presents for Bariatric Assessment. patient presents today for Lap-Band follow-up. She is requesting refill of her Lap- Band. Past Medical History Past Medical History: Cancer Additional Past Medical History / Comment(s): double mastectomy History of Any Multi-Drug Resistant Organisms: None Reported Past Surgical History: Appendectomy, Bariatric Surgery, Breast Surgery, Section, Cholecystectomy Additional Past Surgical History / Comment(s): lap band 2003 double mastectomy. C section x 3 Past Anesthesia/Blood Transfusion Reactions: No Reported Reaction Past Psychological History: No Psychological Hx Reported Smoking Status: Current every day smoker Past Alcohol Use History: None Reported Past Drug Use History: None Reported - Past Family History Mother Family Medical History: Dementia Father Family Medical History: Coronary Artery Disease (CAD), Liver Disease Additional Family Medical History / Comment(s): LIVER DISEASE WAS AFTER HEART SURGERY Surgical - Exam Vital Signs Temp Pulse Resp BP 98.2 F 73 16 148/87 07/26/24 08:46 07/26/24 08:46 07/26/24 08:46 07/26/24 08:46 - General well developed, well nourished, no distress - Eyes PERRL - Neck no masses, no bruits - Respiratory normal expansion - Abdomen Abdomen: soft, non tender Bariatric Assessment & Plan Plan: Patient Lap-Band adjusted. She had 1.5 cc at the band. She will follow-up in 4 weeks. Bariatric Checklist Checklist: Plan: Checklist: EGD: 1. Hiatal hernia: 2. H. Pylori: HgbA1c: Vitamin D: Smoking: Former smoker Primary care physician referral: dr gonzalez Psychiatry clearance: Cardiology clearance: Sleep study: Diet journal: VTE risk score: VTE risk level: Rehab needs at discharge:
== END ==
LOC: BARWHC3 08:30
PROVIDERS: ATTEND Surgery
DX: E66.01 Morbid (severe) obesity due to excess calories (principal); Z68.27 Body mass index [BMI] 27.0-27.9, adult; Z88.3 Allergy status to other anti-infective agents; Z87.891 Personal history of nicotine dependence
CPT/HCPCS: 43999

== ENCOUNTER → 2024-08-23 | Outpatient (CLI) | payer MEDICARE ==
[2024-08-23 09:02] VITALS: BP 129/75; PULSE 80; RESP 16; TEMP 98.1; BMI 26.6
== END ==
LOC: BARWHC3 08:27
PROVIDERS: ATTEND Surgery
DX: E66.01 Morbid (severe) obesity due to excess calories (principal); Z87.891 Personal history of nicotine dependence; Z88.1 Allergy status to other antibiotic agents; Z68.26 Body mass index [BMI] 26.0-26.9, adult
CPT/HCPCS: 99211

== ENCOUNTER → 2024-09-27 | Outpatient (CLI) | payer MEDICARE ==
[2024-09-27 12:15] VITALS: BP 157/82; PULSE 78; RESP 16; TEMP 98.2; BMI 26.9
--- NOTE | 2024-09-28 13:28 | P.HPBAR ---
Bariatric H&P - History & Physicial H&P Date: 09/27/24 History & Physicial: Visit/CC: F/U LAPBAND Patient initial contact: Initial weight: 103.419 kg Initial weight in pounds: 228.00 Height: 5 ft 2 in Initial BMI: 41.7 Last weight: Current weight: 66.678 kg Current weight in pounds: 147.00 Current BMI: 26.9 [place] body weight (based on NIH guidelines): 50.1 kg Excess body weight loss: 68.9% The patient is a 69 year-old F who presents for Bariatric Assessment. Patient presents today for bariatric follow-up. She has minimal complaints of gerd. Past Medical History Past Medical History: Cancer Additional Past Medical History / Comment(s): double mastectomy History of Any Multi-Drug Resistant Organisms: None Reported Past Surgical History: Appendectomy, Bariatric Surgery, Breast Surgery, Section, Cholecystectomy Additional Past Surgical History / Comment(s): lap band 2003 double mastectomy. C section x 3 Past Anesthesia/Blood Transfusion Reactions: No Reported Reaction Past Psychological History: No Psychological Hx Reported Smoking Status: Current every day smoker Past Alcohol Use History: None Reported Past Drug Use History: None Reported - Past Family History Mother Family Medical History: Dementia Father Family Medical History: Coronary Artery Disease (CAD), Liver Disease Additional Family Medical History / Comment(s): LIVER DISEASE WAS AFTER HEART SURGERY Surgical - Exam Vital Signs Temp Pulse Resp BP 98.2 F 78 16 157/82 09/27/24 12:12 09/27/24 12:12 09/27/24 12:12 09/27/24 12:12 - General well developed, well nourished, no distress - Eyes PERRL - ENT normal pinna - Neck no masses - Respiratory normal expansion - Cardiovascular Rhythm: regular - Abdomen Abdomen: soft, non tender Bariatric Assessment & Plan Plan: Status post sleeve gastric. Patient gerd is minimal and will be observed. She will follow-up in 4 weeks. Bariatric Checklist Checklist: Plan: Checklist: EGD: 1. Hiatal hernia: 2. H. Pylori: HgbA1c: Vitamin D: Smoking: Former smoker Primary care physician referral: dr Morse Psychiatry clearance: Cardiology clearance: Sleep study: Diet journal: VTE risk score: VTE risk level: Rehab needs at discharge:
== END ==
LOC: BARWHC3 11:58
PROVIDERS: ATTEND Surgery
DX: E66.01 Morbid (severe) obesity due to excess calories (principal); Z68.26 Body mass index [BMI] 26.0-26.9, adult; Z88.1 Allergy status to other antibiotic agents; Z87.891 Personal history of nicotine dependence
CPT/HCPCS: 99211